=== PATIENT | female | born 1985 | race Caucasian/White ===

== ENCOUNTER 2021-11-13 08:34 | Emergency (ER) | payer OTHER ==
[2021-11-13] MEDS ORDERED: Ondansetron 4 MG/2 ML SDV IVPUSH ONE (09:22)
[2021-11-13] MEDS ORDERED: Lactated Ringers 1,000 ML IV ONE (09:22)
[2021-11-13] MEDS ORDERED: Meclizine 12.5 MG Tab PO ONE (09:22)
[2021-11-13] MEDS ORDERED: Ketorolac 15 MG/ML SDV IVPUSH ONE (12:43)
[2021-11-13] MEDS ORDERED: Metoclopramide 10 MG/2 ML SDV IVPUSH ONE (12:43)
[2021-11-13] MEDS ORDERED: diphenhydrAMINE 50 MG/ML SDV IVPUSH ONE (12:43)
== END 2021-11-13 16:23 ==
LOC: SUPCPDRO 08:34 → JD.ED 08:34
DX: I69.393 Ataxia following cerebral infarction (principal); E10.9 Type 1 diabetes mellitus without complications; Z88.0 Allergy status to penicillin; Z86.16 Personal history of COVID-19
CPT/HCPCS: 36415; 70450; 80053; 83735; 84703; 85025; 85610; 96361; 96374; 96375; 99285; A9270; J1200; J1885; J2405; J2765; J7120